=== PATIENT | male | born 1995 | race Caucasian/White ===

== ENCOUNTER 2017-06-10 06:25 | Inpatient (IN) | payer OTHER ==
[~2017-06-10] VITALS: Ht 190.5 cm; Wt 113.4 kg
[2017-06-10] MEDS ORDERED: methylPREDNISolone SOD SUCC 125 MG/2ML VIAL ONE (06:56)
[2017-06-10] MEDS ORDERED: IPRATROPIUM NEB FS 0.5 MG/2.5 ML AMPUL.NEB NEB ONE (07:00)
[2017-06-10] MEDS ORDERED: ALBUTEROL FS 2.5 MG/3 ML VIAL.NEB CONTNEB ONE ×2 (07:00→09:00)
[2017-06-10] MEDS ORDERED: methylPREDNISolone SOD SUCC 125 MG/2ML VIAL IV ONE (07:00)
[2017-06-10] MEDS ORDERED: ALBUTEROL FS 2.5 MG/3 ML VIAL.NEB ONE (07:05)
[2017-06-10] MEDS ORDERED: IPRATROPIUM NEB FS 0.5 MG/2.5 ML AMPUL.NEB ONE (07:05)
[2017-06-10 07:15] LABS: BASOPHILS % (AUTO) 0.2 % (0.0-2.0); EOSINOPHILS # (AUTO) 0.5 /CMM (0.0-0.7); EOSINOPHILS % (AUTO) 2.6 % (0.0-6.0); HEMATOCRIT 49 % (39-51); HEMOGLOBIN 16.4 g/dL (13.5-17.5); LYMPHOCYTES # (AUTO) 1.7 /CMM (0.8-4.8); LYMPHOCYTES % (AUTO) 9.4 % (20.0-44.0); MEAN CORPUSCULAR HEMOGLOBIN 29 PG (26.0-33.0); MEAN CORPUSCULAR HGB CONC 34 g/dl (31.0-36.0); MEAN CORPUSCULAR VOLUME 86 fL (80-96); MONOCYTES # (AUTO) 0.9 /CMM (0.1-1.30); MONOCYTES % (AUTO) 5.2 % (2.0-12.0); NEUTROPHILS # (AUTO) 14.9 /CMM (1.8-8.9); NEUTROPHILS % (AUTO) 82.6 % (43.0-81.0); PLATELET COUNT (AUTO) 309 /CMM (150-450); RDW COEFFICIENT OF VARIATION 13.6 (11.5-15.0); RED BLOOD CELL COUNT(AUTO) 5.68 MIL/uL (4.5-6.0); WHITE BLOOD COUNT (AUTO) 18.1 K/uL (4.3-11.0)
[2017-06-10 07:19] LABS: CALCIUM, SERUM 9.9 mg/dL (8.5-10.1); CREATININE 0.8 mg/dL (0.6-1.3); POTASSIUM 3.6 mmol/L (3.5-5.1)
[2017-06-10] MEDS ORDERED: AZITHROMYCIN 500 MG in IV D5W 250 ML IV ONE (07:30)
[2017-06-10] MEDS ORDERED: IV NS 0.9% 1,000 ML BAG IV ONE (07:30)
[2017-06-10 09:00] VITALS: BP 147/86
[2017-06-10] MEDS ORDERED: MAGNESIUM HYDROXIDE 30 ML UDC PO PRN (10:30)
[2017-06-10] MEDS ORDERED: IV NS 0.9% 1,000 ML IV PRN ×2 (10:30→14:05)
[2017-06-10] MEDS ORDERED: ZOLPIDEM TARTRATE 5 MG TABLET PO PRN (10:30)
[2017-06-10] MEDS ORDERED: Z GUARD REMEDY 2 OZ OINT TP PRN (10:30)
[2017-06-10] MEDS ORDERED: HYDROCODONE/APAP 5/325MG 1 EACH TABLET PO PRN (10:30)
[2017-06-10] MEDS ORDERED: MAG HYDROX/AL HYDROX/SIMETH 30 ML UDC PO PRN (10:30)
[2017-06-10] MEDS ORDERED: ONDANSETRON HCL/PF 4 MG/2 ML VIAL IVP PRN (10:30)
[2017-06-10] MEDS ORDERED: ACETAMINOPHEN 325 MG TABLET PO PRN (10:30)
[2017-06-10 10:57] LABS: BILIRUBIN,DIRECT 0.1 mg/dL (0.0-0.2); BILIRUBIN,TOTAL 0.4 mg/dL (0.2-1.0)
[2017-06-10] MEDS: ALBUTEROL FS 2.5 MG/3 ML VIAL.NEB NEB SCH ×3 (11:00→19:51)
[2017-06-10] MEDS ORDERED: ALBUTEROL FS 2.5 MG/3 ML VIAL.NEB NEB PRN (11:00)
[2017-06-10] MEDS: ENOXAPARIN SODIUM 40 MG/0.4 ML DISP.SYRIN SQ SCH (11:54)
[2017-06-10] MEDS: LEVOFLOXACIN 500 MG /D5W 100ML 500 MG in PREMIX 1 EA IV SCH (11:55)
[2017-06-10 13:00] VITALS: BP 147/86
[2017-06-10 16:02] VITALS: BP 139/71
[2017-06-10 20:00] VITALS: BP_SYST 141; BP_SYST 146; BP_DIAS 81
[2017-06-11] VITALS: BP 152/73
[2017-06-11] MEDS: ALBUTEROL FS 2.5 MG/3 ML VIAL.NEB NEB SCH ×4 (01:43→22:20)
[2017-06-11] MEDS ORDERED: hydrALAZINE HCL 25 MG TABLET PO PRN (02:30)
[2017-06-11 04:00] VITALS: BP 146/68
[2017-06-11 08:06] VITALS: BP 125/85
[2017-06-11] MEDS: ENOXAPARIN SODIUM 40 MG/0.4 ML DISP.SYRIN SQ SCH (08:31)
[2017-06-11 08:36] LABS: BASOPHILS % (AUTO) 0.2 % (0.0-2.0); EOSINOPHILS % (AUTO) 0.1 % (0.0-6.0); HEMATOCRIT 44 % (39-51); HEMOGLOBIN 14.6 g/dL (13.5-17.5); LYMPHOCYTES # (AUTO) 1.7 /CMM (0.8-4.8); LYMPHOCYTES % (AUTO) 10.5 % (20.0-44.0); MEAN CORPUSCULAR HEMOGLOBIN 29 PG (26.0-33.0); MEAN CORPUSCULAR HGB CONC 33 g/dl (31.0-36.0); MEAN CORPUSCULAR VOLUME 86 fL (80-96); MONOCYTES # (AUTO) 1.6 /CMM (0.1-1.30); NEUTROPHILS # (AUTO) 12.8 /CMM (1.8-8.9); NEUTROPHILS % (AUTO) 79.2 % (43.0-81.0); PLATELET COUNT (AUTO) 325 /CMM (150-450); RDW COEFFICIENT OF VARIATION 13.8 (11.5-15.0); RED BLOOD CELL COUNT(AUTO) 5.08 MIL/uL (4.5-6.0); WHITE BLOOD COUNT (AUTO) 16.1 K/uL (4.3-11.0)
[2017-06-11 08:48] LABS: CALCIUM, SERUM 9.6 mg/dL (8.5-10.1); CREATININE 0.9 mg/dL (0.6-1.3); PHOSPHORUS 4.6 mg/dL (2.5-4.9); POTASSIUM 3.5 mmol/L (3.5-5.1)
[2017-06-11] MEDS: LEVOFLOXACIN 500 MG /D5W 100ML 500 MG in PREMIX 1 EA IV SCH (10:28)
[2017-06-11] MEDS ORDERED: HYDROCODONE BIT/HOMATROPINE 5 ML UDC PO PRN (14:30)
[2017-06-11 16:59] VITALS: BP 135/83
[2017-06-11 20:00] VITALS: BP 130/81
[2017-06-12] MEDS: ALBUTEROL FS 2.5 MG/3 ML VIAL.NEB NEB SCH ×3 (03:04→13:56)
[2017-06-12 08:00] VITALS: BP 136/97
[2017-06-12] MEDS: ENOXAPARIN SODIUM 40 MG/0.4 ML DISP.SYRIN SQ SCH (10:40)
[2017-06-12] MEDS: LEVOFLOXACIN 500 MG /D5W 100ML 500 MG in PREMIX 1 EA IV SCH (13:25)
[2017-06-12] MEDS ORDERED: ALBU8.5H8 INH (14:49)
[2017-06-12] MEDS ORDERED: PHEN118S9 PO (14:49)
== END 2017-06-12 16:00 | disposition home or self-care (01) | DRG 200 ==
LOC: ER 06:30 → MED 09:13 → TELE 15:57 → MED 06-11 09:31
PROVIDERS: ADMIT Internal Medicine; ATTEND Internal Medicine
DX: T79.7XXA Traumatic subcutaneous emphysema, initial encounter (principal); E87.2 Acidosis; E66.9 Obesity, unspecified; Z68.31 Body mass index [BMI] 31.0-31.9, adult; X50.9XXA Other and unspecified overexertion or strenuous movements or postures, initial encounter; X50.0XXA Overexertion from strenuous movement or load, initial encounter; T70.29XA Other effects of high altitude, initial encounter; J45.20 Mild intermittent asthma, uncomplicated; R06.03 Acute respiratory distress; L80 Vitiligo; J06.9 Acute upper respiratory infection, unspecified; K21.9 Gastro-esophageal reflux disease without esophagitis
CPT/HCPCS: 36415; 71045-TC; 71250-TC; 80048-TC; 82247-TC; 82248-TC; 83605-TC; 83735-TC; 84100-TC; 85025-TC; 87040-TC; 87081-TC; 94799-TC; A4216; A4606; J0456; J1650; J1956; J2930; J7030; J7060; Z7610